=== PATIENT | female | born 1975 | race Caucasian/White ===

== ENCOUNTER 2017-11-12 09:49 | Day surgery (SDC) | payer OTHER ==
[2017-11-12] MEDS ORDERED: ONDANSETRON HCL INJ/PF 4 MG/2 ML SDV ONE (11:54)
[2017-11-12] MEDS ORDERED: PROPOFOL INJ 200 MG/20 ML VIAL IV ONE (11:54)
[2017-11-12] MEDS ORDERED: LIDOCAINE 2% INJ-PF (20 MG/ML) 10 ML AMPUL ONE (11:54)
[2017-11-12] MEDS ORDERED: ONDANSETRON HCL INJ/PF 4 MG/2 ML SDV IV PRN (13:08)
[2017-11-12] MEDS ORDERED: PROMETHAZINE HCL INJ 25 MG/1 ML VIAL IV PRN ×2 (13:08)
[2017-11-12] MEDS ORDERED: FENTANYL CITRATE INJ/PF 100 MCG/2 ML AMPUL IV PRN ×3 (13:08)
[2017-11-12] MEDS ORDERED: MORPHINE SULFATE 10 MG/ML INJ IV PRN (13:08)
[2017-11-12] MEDS ORDERED: MEPERIDINE HCL/PF INJ 25 MG/1 ML DISP.SYRIN IV PRN (13:08)
[2017-11-12] MEDS ORDERED: DIPHENHYDRAMINE HCL 50 MG/ML VIAL IV PRN (13:08)
[2017-11-12 14:27] VITALS: BP 115/78
--- NOTE | 2017-11-12 15:16 | Operative Report ---
Operative Report DATE OF SURGERY: 11/12/17 Operative Report: The risks, benefits and alternatives of the procedure are explained to the patient in detail she is taken to the OR she was placed in the left lateral decubital position Time out was called Propofol sedation is administered colonoscopy is performed prep is good cecum is reached, terminal ileum is intubated all segments are visualized retroflexion is performed once colonoscopy is completed, EGD is performed the esophagus, stomach and duodenum was visualized PREOPERATIVE DIAGNOSIS: ? Crohn's disease. abdominal pain. change in bowel habits. blood in stools POSTOPERATIVE DIAGNOSIS: terminal ileitis- biopsies. normal colonoscopy. internal hemrorhoids. gastritis biopsies to rule out forH.Pylori OPERATION: Colonoscopy with biopsy. EGD with biopsy SURGEON: KIAH VALENZUELA ANESTHESIA: LMAC TISSUE REMOVED OR ALTERED: as noted above COMPLICATIONS: none ESTIMATED BLOOD LOSS: none INTRAOPERATIVE FINDINGS: no evidence of Crohn's or uclerative colitis PROCEDURE: Patient tolerated her procedure well no post procedure complications patient is discharged in good condition discharge date: 11/12/17 Discharge diet: regular Discharge activity: normal will wait on biopsy more likely having IBS bleeding likely from hemorrhoids patient is instructed to call the office or go to ED if any related issues 2-3 week follow up to discuss further treatment recommendations
== END 2017-11-12 14:20 | disposition home or self-care (01) ==
LOC: OROUT 09:49
PROVIDERS: ATTEND Internal Medicine Gastroenterology
PROC: 0DB68ZX Excision of Stomach, Via Natural or Artificial Opening Endoscopic, Diagnostic (ICD-10-PCS; principal; 2017-11-12 11:45)
PROC: 0DBB8ZX Excision of Ileum, Via Natural or Artificial Opening Endoscopic, Diagnostic (ICD-10-PCS; 2017-11-12 11:45)
DX: K29.70 Gastritis, unspecified, without bleeding (principal); K52.9 Noninfective gastroenteritis and colitis, unspecified; K92.1 Melena; K64.8 Other hemorrhoids; Z79.891 Long term (current) use of opiate analgesic; Z79.899 Other long term (current) drug therapy; Z85.41 Personal history of malignant neoplasm of cervix uteri
CPT/HCPCS: 43239; 45380; 88342 ×2; 88305 ×2; J2405; J2704; J3490